=== PATIENT | female | born 1985 | race African-American/Black ===

== ENCOUNTER 2022-04-17 21:54 | Emergency (ER) | payer SELFPAY ==
[2022-04-17] MEDS ORDERED: Ketorolac Tromethamine 30 MG/ML VIAL ONE (22:45)
[2022-04-17 22:47] LABS: #Eosinphils 0.1 10x3/uL (0.0-0.5); #Monocytes 0.7 10x3/uL (0.0-1.1); #Neutrophils 5.6 10x3/uL (1.5-8.4); %Basophils 0.5 % (0.0-2.0); %Eosinophils 0.9 % (0.0-6.0); %Lymphocytes 26.9 % (18.0-47.0); %Monocytes 7.9 % (0.0-10.0); %Neutrophils 63.7 % (40.0-75.0); Hemoglobin 8.9 g/dL (12.0-15.5); Mean Corpuscular HGB CONC 30.6 g/dL (32.0-36.0); Mean Corpuscular Hemoglobin 23.4 pg (27.0-33.0); Mean Corpuscular Volume 76.4 fl (81.6-98.3); Mean Platelet Volume 8.9 fl (7.4-10.4); Platelet Count 444 10x3/uL (150-450); RBC Distribution Width 18.9 % (11.5-14.5); Red Blood Cell (RBC) Count 3.81 10x6/uL (3.90-5.03); White Blood Cell (WBC) Count 8.8 10x3/uL (3.5-10.5)
[2022-04-17 22:54] LABS: BHCG - Serum Negative (NEGATIVE); Pregs Control Background? CLEAR/WHITE (CLR/WHITE); Pregs Control Bar Appear? YES (CONTROL BAR)
[2022-04-17 23:00] LABS: ALT (SGPT) 12 U/L (8-55); AST (SGOT) 15 U/L (5-34); Albumin 4.5 g/dL (3.5-5.0); Alkaline Phosphatase 75 U/L (40-110); Anion Gap 14 mmol/L (10-20); BUN (Urea Nitrogen) 9 mg/dL (7.0-18.7); Bilirubin, Total 0.2 mg/dL (0.2-1.2); Calc. Creatinine Clearance 0 mL/min (70-130); Calcium 9.2 mg/dL (7.8-10.44); Carbon Dioxide 23 mmol/L (22-29); Chloride 105 mmol/L (98-107); Globulin 3.1 g/dL (2.4-3.5); Glucose 110 mg/dL (70-105); Potassium 3.2 mmol/L (3.5-5.1); Protein, Total 7.6 g/dL (6.0-8.3); Sodium 139 mmol/L (136-145)
[2022-04-17 23:54] LABS: Bilirubin Neg (Negative); Blood, Urine Negative (Negative); Clarity Clear (Clear); Glucose, Urine (Dipstick) Normal (Negative); Ketone, Urine Negative (Negative); Leukocyte Negative (Negative); Nitrite Negative (Negative); Protein, Urine (Dipstick) Negative (Neg-Trace); Urobilinogen Normal mg/dL (Less than 2)
== END 2022-04-18 01:04 | disposition home or self-care (01) ==
LOC: CSHERS 21:54
DX: R56.9 Unspecified convulsions (principal)
CPT/HCPCS: 70450; 71045; 80053; 81003; 84703; 85025; 96374; J1885

== ENCOUNTER 2022-12-22 12:46 | Emergency (ER) | payer SELFPAY ==
[2022-12-22] MEDS ORDERED: Ketorolac Tromethamine 30 MG/ML VIAL ONE (16:47)
[2022-12-22] MEDS ORDERED: Metoclopramide HCl 10 MG/2 ML VIAL ONE (16:47)
[2022-12-22 16:56] LABS: #Eosinphils 0.1 10x3/uL (0.0-0.5); #Monocytes 0.6 10x3/uL (0.0-1.1); %Basophils 0.3 % (0.0-2.0); %Monocytes 7.2 % (0.0-10.0); %Neutrophils 64.2 % (40.0-75.0); Hemoglobin 8.2 g/dL (12.0-15.5); Mean Corpuscular HGB CONC 29.2 g/dL (32.0-36.0); Mean Corpuscular Hemoglobin 20.5 pg (27.0-33.0); Mean Corpuscular Volume 70.3 fl (81.6-98.3); Mean Platelet Volume 9.3 fl (7.4-10.4); Platelet Count 397 10x3/uL (150-450); RBC Distribution Width 18.4 % (11.5-14.5); White Blood Cell (WBC) Count 7.8 10x3/uL (3.5-10.5)
[2022-12-22 17:08] LABS: ALT (SGPT) 15 U/L (8-55); AST (SGOT) 12 U/L (5-34); Albumin 4.8 g/dL (3.5-5.0); Alkaline Phosphatase 84 U/L (40-110); Anion Gap 13 mmol/L (10-20); BUN (Urea Nitrogen) 9 mg/dL (7.0-18.7); Bilirubin, Total 0.3 mg/dL (0.2-1.2); Calc. Creatinine Clearance 0 mL/min (70-130); Calcium 9.3 mg/dL (7.8-10.44); Carbon Dioxide 24 mmol/L (22-29); Chloride 106 mmol/L (98-107); Estimated GFR 76; Globulin 3.5 g/dL (2.4-3.5); Glucose 95 mg/dL (70-105); Potassium 4.1 mmol/L (3.5-5.1); Protein, Total 8.3 g/dL (6.0-8.3); Sodium 139 mmol/L (136-145)
[2022-12-22 17:56] LABS: Anisocytosis MODERATE=16-30 cells (100X) (0-5/hpf); Hypochromia MODERATE=16-30 cells (100X) (0-5/hpf); Macrocytosis SLIGHT = 6-15 cells (100X) (0-5/hpf); Microcytosis SLIGHT = 6-15 cells (100X) (0-5/hpf); Polychromasia SLIGHT = 2-3 cells (100X) (0-2/hpf)
[2022-12-22 17:58] LABS: Large Platelets SLIGHT; Ovalocytes SLIGHT = 2-5 cells (100X) (0-1/hpf); Platelet Morphology Comment Appears Adequate
== END 2022-12-22 18:16 | disposition home or self-care (01) ==
LOC: CSHERS 12:46
DX: G43.109 Migraine with aura, not intractable, without status migrainosus (principal); F17.210 Nicotine dependence, cigarettes, uncomplicated
CPT/HCPCS: 70450; 80053; 85025; 85379; 86140; 96374; 96375; J1885; J2765

== ENCOUNTER 2023-03-07 13:51 | Inpatient (IN) | payer SELFPAY ==
[~2023-03-07 13:51] MED LIST: Iopamidol 370 76% 100 ML VIAL ONE
[2023-03-07] MEDS ORDERED: Dexamethasone 10 MG/ML VIAL ONE (15:22)
[2023-03-07] MEDS ORDERED: diphenhydrAMINE 50 MG/ML VIAL ONE (15:23)
[2023-03-07] MEDS ORDERED: Ketorolac Tromethamine 30 MG/ML VIAL ONE ×2 (15:23→19:53)
[2023-03-07] MEDS ORDERED: Metoclopramide HCl 10 MG/2 ML VIAL ONE (15:23)
[2023-03-07 15:51] LABS: #Monocytes 0.5 10x3/uL (0.0-1.1); #Neutrophils 5.5 10x3/uL (1.5-8.4); %Basophils 0.5 % (0.0-2.0); %Eosinophils 0.4 % (0.0-6.0); %Lymphocytes 23.4 % (18.0-47.0); %Monocytes 6.7 % (0.0-10.0); %Neutrophils 68.8 % (40.0-75.0); Hemoglobin 8.3 g/dL (12.0-15.5); Mean Corpuscular HGB CONC 27.8 g/dL (32.0-36.0); Mean Corpuscular Volume 68.6 fl (81.6-98.3); Mean Platelet Volume 9.2 fl (7.4-10.4); Platelet Count 429 10x3/uL (150-450); RBC Distribution Width 19.3 % (11.5-14.5); Red Blood Cell (RBC) Count 4.36 10x6/uL (3.90-5.03); White Blood Cell (WBC) Count 8.1 10x3/uL (3.5-10.5)
[2023-03-07 16:18] LABS: ALT (SGPT) 8 U/L (8-55); AST (SGOT) 18 U/L (5-34); Acetaminophen Less than 10.0 mcg/mL (10.0-30.0); Albumin 4.8 g/dL (3.5-5.0); Alcohol Less than 10 mg/dL (Less than 10); Alkaline Phosphatase 81 U/L (40-110); Anion Gap 14 mmol/L (10-20); BUN (Urea Nitrogen) 9 mg/dL (7.0-18.7); Bilirubin, Total 0.4 mg/dL (0.2-1.2); CK (CPK) 282 U/L (29-168); Calc. Creatinine Clearance 0 mL/min (70-130); Calcium 9.3 mg/dL (7.8-10.44); Carbon Dioxide 20 mmol/L (22-29); Chloride 106 mmol/L (98-107); Estimated GFR 96; Globulin 3.4 g/dL (2.4-3.5); Glucose 102 mg/dL (70-105); Potassium 3.4 mmol/L (3.5-5.1); Protein, Total 8.2 g/dL (6.0-8.3); Salicylate Less than 8.0 mg/dL (15.0-30.0); Sodium 137 mmol/L (136-145)
[2023-03-07 16:20] LABS: BHCG - Serum Negative (NEGATIVE); Pregs Control Background? CLEAR/WHITE (CLR/WHITE); Pregs Control Bar Appear? YES (CONTROL BAR)
[2023-03-07 16:50] LABS: Anisocytosis SLIGHT = 6-15 cells (100X) (0-5/hpf); Hypochromia MODERATE=16-30 cells (100X) (0-5/hpf); Microcytosis MODERATE=15-30 cells (100X) (0-5/hpf)
[2023-03-07 16:51] LABS: Large Platelets SLIGHT; Platelet Morphology Comment Appears Adequate
[2023-03-07] MEDS ORDERED: Aspirin 325 mg Enteric Coated Tablet ONE (17:53)
[2023-03-07 18:01] LABS: Bilirubin Neg (Negative); Blood, Urine Negative (Negative); Clarity Clear (Clear); Glucose, Urine (Dipstick) Normal (Negative); Ketone, Urine Negative (Negative); Leukocyte Negative (Negative); Nitrite Negative (Negative); Protein, Urine (Dipstick) 30 mg/dl (Neg-Trace); Specific Gravity, Urine 1.025 (1.005-1.030); Urobilinogen Normal mg/dL (Less than 2)
[2023-03-07 18:10] LABS: Amphetamine Not Detected (NotDetected); Barbiturates Screen Not Detected (NotDetected); Benzodiazepine Screen Not Detected (NotDetected); Cocaine Metabolite Screen Not Detected (NotDetected); Methadone Not Detected (NotDetected); Methamphetamine Not Detected (NotDetected); Opiate Screen Not Detected (NotDetected); Oxycodone Screen Not Detected (NotDetected); Phencyclidine (PCP) Not Detected (NotDetected); THC/Cannabinoid Screen Detected (NotDetected); Tricyclic Screen Not Detected (NotDetected)
[2023-03-07 18:15] LABS: Bacteria/HPF 1+ HPF (None Seen); Mucous/LPF 3+ LPF (<2+); RBC/HPF None Seen HPF (0-3); Squamous Epithelial 0-3 HPF (0-3); WBC/HPF 0-3 HPF (0-3)
[2023-03-07] MEDS ORDERED: Calcium Carbonate 500 MG ChewTAB PO PRN (22:26)
[2023-03-07] MEDS ORDERED: Senokot S 8.6-50 MG TAB PO PRN (22:26)
[2023-03-07] MEDS ORDERED: Ondansetron PF 4 MG/2 ML Vial IVP PRN (22:26)
[2023-03-07] MEDS ORDERED: Lorazepam 2 MG/ML VIAL SLOW IVP PRN (22:32)
[2023-03-08] MEDS ORDERED: Acetaminophen 325 MG TAB ONE ×2 (00:18→08:23)
[2023-03-08] MEDS ORDERED: Lorazepam 2 MG/ML VIAL ONE (00:18)
[2023-03-08] MEDS ORDERED: Ibuprofen 200 MG TAB ONE ×2 (00:19→08:24)
[2023-03-08] MEDS ORDERED: Famotidine 20 MG TAB ONE ×2 (00:21→08:29)
[2023-03-08] MEDS: Ibuprofen 200 MG TAB PO PRN ×2 (00:29→08:35)
[2023-03-08] MEDS: Acetaminophen 325 MG TAB PO PRN ×2 (00:30→08:36)
[2023-03-08] MEDS ORDERED: Famotidine 20 MG TAB PO SCH ×2 (00:30→09:00)
[2023-03-08] MEDS ORDERED: Potassium Chloride 20 MEQ TAB ONE (00:37)
[2023-03-08] MEDS ORDERED: Lactated Ringer's 1,000 ML IV SCH (01:00)
[2023-03-08] MEDS ORDERED: Potassium Chloride 20 MEQ TAB PO SCH (01:00)
[2023-03-08 04:11] LABS: #Monocytes 0.3 10x3/uL (0.0-1.1); #Neutrophils 5.8 10x3/uL (1.5-8.4); %Lymphocytes 16.3 % (18.0-47.0); %Monocytes 4.4 % (0.0-10.0); Hemoglobin 7.9 g/dL (12.0-15.5); Mean Corpuscular HGB CONC 28.4 g/dL (32.0-36.0); Mean Corpuscular Hemoglobin 19.4 pg (27.0-33.0); Mean Corpuscular Volume 68.1 fl (81.6-98.3); Mean Platelet Volume 8.7 fl (7.4-10.4); Platelet Count 386 10x3/uL (150-450); RBC Distribution Width 19.5 % (11.5-14.5); Red Blood Cell (RBC) Count 4.08 10x6/uL (3.90-5.03); White Blood Cell (WBC) Count 7.3 10x3/uL (3.5-10.5)
[2023-03-08 04:29] LABS: Anion Gap 15 mmol/L (10-20); BUN (Urea Nitrogen) 11 mg/dL (7.0-18.7); CK (CPK) 276 U/L (29-168); Calc. Creatinine Clearance 127 mL/min (70-130); Calcium 9.1 mg/dL (7.8-10.44); Carbon Dioxide 18 mmol/L (22-29); Cardiac Risk 4.5 (Less than 4.5); Chloride 108 mmol/L (98-107); Cholesterol 176 mg/dl (< 200 Desired); Estimated GFR 96; Glucose 108 mg/dL (70-105); HDL Cholesterol 39 mg/dL (>60 Neg Risk); Iron 12 ug/dL (50-170); Iron Binding Capacity, Total 463 mcg/dL (265-497); LDL Cholesterol, Calculated 121 mg/dL; Potassium 3.8 mmol/L (3.5-5.1); Sodium 137 mmol/L (136-145); Triglycerides 79 mg/dL (Less than 150)
[2023-03-08 04:44] LABS: Ferritin 10.56 ng/mL (10-291); Free T4 (Free Thyroxine) 1.16 ng/dL (0.70-1.48); Thyroid Stimulating Hormone 0.2598 uIU/mL (0.35-4.94)
[2023-03-08 04:48] LABS: Anisocytosis SLIGHT = 6-15 cells (100X) (0-5/hpf); Hypochromia SLIGHT = 6-15 cells (100X) (0-5/hpf); Microcytosis SLIGHT = 6-15 cells (100X) (0-5/hpf); Platelet Morphology Comment Appears Adequate
[2023-03-08] MEDS ORDERED: levETIRAcetam 500 MG/5 ML VIAL ONE (08:24)
[2023-03-08] MEDS ORDERED: levETIRAcetam 500 MG/5 ML VIAL SLOW IVP SCH (09:00)
[2023-03-08] MEDS ORDERED: levETIRAcetam in NS 500 MG in Premix Bag 1 BAG IVPB SCH (09:00)
[2023-03-08] MEDS ORDERED: Nicotine 7 MG PATCH TD SCH (14:45)
== END 2023-03-08 15:57 | disposition home or self-care (01) | DRG 101 ==
LOC: CSHERS 13:51 → CSHERHOLD 23:23 → INTOOBSV 23:23 → OBSVTOIN 03-08 12:22
PROVIDERS: ADMIT Internal Medicine; ATTEND Internal Medicine
PROC: 4A10X4Z Monitoring of Central Nervous Electrical Activity, External Approach (ICD-10-PCS; principal; 2023-03-08)
DX: R56.9 Unspecified convulsions (principal); E87.6 Hypokalemia; D50.9 Iron deficiency anemia, unspecified; F12.10 Cannabis abuse, uncomplicated; E05.80 Other thyrotoxicosis without thyrotoxic crisis or storm; G93.89 Other specified disorders of brain; S00.83XA Contusion of other part of head, initial encounter; W19.XXXA Unspecified fall, initial encounter; Y92.9 Unspecified place or not applicable; Z98.890 Other specified postprocedural states
CPT/HCPCS: 36415; 70450; 70486; 70496; 70498; 70551; 72125; 80048; 80053; 80061; 80306; 80307; 81003; 81015; 82550; 82728; 83540; 83550; 83690; 83735; 84100; 84146; 84439; 84443; 84484; 84703; 85025; 93005; 95816; 95819; 95957; J1100; J1200; J1885; J1953; J2060; J2765; J7120; Q9967